=== PATIENT | male | born 1930 | race Caucasian/White ===

== ENCOUNTER 2017-10-30 13:32 | Inpatient (IN) | payer MEDICARE, OTHER ==
[2017-10-30 14:47] LABS: CKMB 1.9 ng/mL (0-6.6)
[2017-10-30 14:56] LABS: Troponin I 1.515 ng/mL (< 0.028)
[2017-10-30] MEDS ORDERED: Aspirin 325 MG TAB ONE (15:38)
[2017-10-30] MEDS ORDERED: Ondansetron ODT 4 MG TAB PO PRN (16:20)
[2017-10-30] MEDS ORDERED: HYDROcodone/Acetaminophen 5/325 mg Tablet PO PRN (16:20)
[2017-10-30] MEDS ORDERED: Acetaminophen 325 MG TAB PO PRN (16:20)
[2017-10-30 16:33] VITALS: BMI 28.3
[2017-10-30 18:48] LABS: Troponin I 1.614 ng/mL (< 0.028)
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
[2017-10-30 19:19] LABS: Hemoglobin 13.9 g/dL (14.0-18.0); Platelet Count 290 thou/uL (130-400)
[2017-10-30] MEDS: Famotidine 40 MG/4 ML VIAL SLOW IVP SCH (20:45)
[2017-10-30] MEDS: Dabigatran 150 mg Capsule PO SCH (20:46)
[2017-10-30] MEDS: Metoprolol Tartrate 50 MG TAB PO SCH (20:46)
[2017-10-30] MEDS: Lisinopril 20 MG TAB PO SCH (20:46)
[2017-10-30] MEDS ORDERED: Enoxaparin Sodium 80 MG/0.8 ML SYRINGE SC SCH (21:00)
[2017-10-30] MEDS ORDERED: Carvedilol 3.125 MG TAB PO SCH (21:00)
[2017-10-30] MEDS ORDERED: Famotidine/PF 20 mg/2ml Vial SLOW IVP SCH (21:00)
[2017-10-30] MEDS ORDERED: Enoxaparin Sodium 100 MG/ML SYRINGE SC SCH (21:00)
[2017-10-30] MEDS ORDERED: Metoprolol Tartrate 50 MG TAB PO SCH (21:00)
[2017-10-31 05:39] LABS: #Eosinphils 0.2 thou/uL (0.0-0.7); #Lymphocytes 0.5 thou/uL (1.20-3.40); #Monocytes 0.8 thou/uL (0.11-0.59); #Neutrophils 10.9 thou/uL (1.40-6.50); %Basophils 0.1 % (0.0-1.0); %Eosinophils 1.9 % (0.0-10.0); %Lymphocytes 4.2 % (21.0-51.0); %Monocytes 6.4 % (0.0-10.0); %Neutrophils 87.4 % (42.0-75.0); Hemoglobin 13.5 g/dL (14.0-18.0); Mean Corpuscular Hemoglobin 29.7 pg (27.0-31.0); Mean Corpuscular Volume 95.9 fl (80.0-94.0); Mean Platelet Volume 7.1 fL (7.4-10.4); Platelet Count 282 thou/uL (130-400); Red Blood Cell (RBC) Count 4.56 mill/uL (4.70-6.10); White Blood Cell (WBC) Count 12.5 thou/uL (4.8-10.8)
[2017-10-31 05:52] LABS: Anion Gap 15 mmol/L (10-20); BUN (Urea Nitrogen) 31 mg/dL (8.4-25.7); Calc. Creatinine Clearance 69 mL/min (70-130); Calcium 8.7 mg/dL (7.8-10.44); Carbon Dioxide 33 mmol/L (23-31); Cardiac Risk 5.5 (Less than 4.5); Chloride 96 mmol/L (98-107); Cholesterol 120 mg/dl (< 200 Desired); Estimated GFR-MDRD 77; Glucose 95 mg/dL (83-110); HDL Cholesterol 22 mg/dL (>60 Neg Risk); LDL Cholesterol, Calculated 74 mg/dL; Potassium 3.7 mmol/L (3.5-5.1); Sodium 140 mmol/L (136-145); Triglycerides 119 mg/dL (Less than 150)
[2017-10-31] MEDS ORDERED: Furosemide 20 MG/2 ML VIAL SLOW IVP SCH (06:00)
[2017-10-31] MEDS: Furosemide 20 MG/2 ML VIAL SLOW IVP SCH ×2 (06:52→14:43)
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
[2017-10-31] MEDS: Lisinopril 20 MG TAB PO SCH (08:19)
[2017-10-31] MEDS: Dabigatran 150 mg Capsule PO SCH ×2 (08:19→20:57)
[2017-10-31] MEDS: Spironolactone 25 MG TAB PO SCH (08:20)
[2017-10-31] MEDS: Potassium Chloride 10 MEQ TAB PO SCH (08:20)
[2017-10-31] MEDS: Metoprolol Tartrate 50 MG TAB PO SCH ×2 (08:28→21:08)
[2017-10-31] MEDS: Famotidine 40 MG/4 ML VIAL SLOW IVP SCH ×2 (08:44→20:56)
[2017-10-31] MEDS ORDERED: Non-Formulary Item 1 EACH (Sertraline Hcl [Zoloft] 50 MG) PO SCH (09:00)
[2017-10-31] MEDS ORDERED: Aspirin 325 MG TAB PO SCH (09:00)
[2017-10-31] MEDS ORDERED: cefTRIAXone\\ROCEPHIN 1 GM in Sodium Chloride 0.9% 100 ML IVPB SCH (09:00)
[2017-10-31] MEDS: Azithromycin 500 MG in Sodium Chloride 0.9% 250 ML 250 ML IVPB SCH (09:34)
[2017-10-31] MEDS ORDERED: cefTRIAXone\\ROCEPHIN 1 GM, Syringe 0.4 ML in Sterile Water 9.6 ML SLOW IVP SCH (10:00)
[2017-10-31] MEDS: cefTRIAXone\\ROCEPHIN 1 GM, Syringe 0.4 ML in Sterile Water 9.6 ML SLOW IVP SCH (11:44)
--- NOTE | 2017-10-31 14:54 | PDOC.CTH ---
Cardiology Progress Note - Subjective Discussed care with family. Questions answered. Patient responsive, but not oriented. They say he's had mild hallucinations. Not aggressive. - Objective Vital Signs Temp Pulse Pulse Pulse Resp BP BP 10/31/17 12:20 99.0 F 76 16 10/31/17 09:48 86 73 101/57 L 108/56 L 10/31/17 09:23 86 73 101/57 L 108/56 L 10/31/17 08:13 97.7 F 106 H 22 H BP Pulse Ox Pulse Ox Pulse Ox 10/31/17 12:20 107/52 L 95 10/31/17 09:48 95 96 10/31/17 09:23 96 10/31/17 08:13 132/76 95 Weight 186 lb 10/30/17 10/31/17 11/01/17 06:59 06:59 06:59 Intake Total 480 Balance 480 - Physical Examination General/Neuro: NAD, other: (Alert and awake) Neck: no JVD present Lungs: other: (decreased BS bilaterally at bases; no wheezing/rhonchi) Heart: other: (Irregular) Abdomen: NT/ND Extremities: other: (+1 edema to right. No edema to LLE) - Telemetry Telemetry Rhythm: AFib, rate 90s-100bpm - Labs Result Diagrams: 10/31/17 05:19 10/31/17 05:19 Troponin/CKMB CK-MB (CK-2) 1.9 ng/mL (0-6.6) 10/30/17 14:04 Troponin I 1.614 ng/mL (< 0.028) H* 10/30/17 17:46 - Assessment/Plan 1. NSTEMI - medical mgmt only 2. Acute CHF - ECHO pending to evaluate whether systolic or diastolic. 3. Hypotension - decrease lisinopril 4. AFib with RVR - improved rate-control on bblocker increased dosage. Pradaxa resumed. 5. Possible PNA - treated per primary team. 6. MS changes (per family) - monitor closely. VSS currently.
[2017-10-31] MEDS: Lisinopril 10 MG TAB PO SCH (20:58)
[2017-11-01 05:15] LABS: #Eosinphils 0.3 thou/uL (0.0-0.7); #Lymphocytes 0.6 thou/uL (1.20-3.40); #Monocytes 0.9 thou/uL (0.11-0.59); #Neutrophils 9.7 thou/uL (1.40-6.50); %Eosinophils 2.9 % (0.0-10.0); %Lymphocytes 5.4 % (21.0-51.0); %Monocytes 7.8 % (0.0-10.0); %Neutrophils 83.9 % (42.0-75.0); Hemoglobin 13.4 g/dL (14.0-18.0); Mean Corpuscular HGB CONC 31.2 g/dL (32.0-36.0); Mean Platelet Volume 6.9 fL (7.4-10.4); Platelet Count 261 thou/uL (130-400); RBC Distribution Width 12.9 % (11.5-14.5); Red Blood Cell (RBC) Count 4.46 mill/uL (4.70-6.10); White Blood Cell (WBC) Count 11.5 thou/uL (4.8-10.8)
[2017-11-01 05:24] LABS: Anion Gap 13 mmol/L (10-20); BUN (Urea Nitrogen) 30 mg/dL (8.4-25.7); Calc. Creatinine Clearance 66 mL/min (70-130); Calcium 8.4 mg/dL (7.8-10.44); Carbon Dioxide 36 mmol/L (23-31); Chloride 93 mmol/L (98-107); Estimated GFR-MDRD 77; Glucose 120 mg/dL (83-110); Potassium 3.4 mmol/L (3.5-5.1); Sodium 139 mmol/L (136-145)
[2017-11-01] MEDS: Furosemide 20 MG/2 ML VIAL SLOW IVP SCH ×2 (06:22→14:49)
--- NOTE | 2017-11-01 08:06 | RAD ---
PORTABLE CHEST 1 VIEW: Date: 11/01/17 Time: 0547 hours HISTORY: Shortness of breath and cough. FINDINGS/IMPRESSION: Comparison made with exam of 10/30/17. There is a new density in the right mid lung which may either represent an infiltrate/pneumonia or a plate of atelectatic change. Chronic changes are again noted. The heart size is stable. No pneumothor aces or pleural effusions are seen. POS: JOSÉ MIGUEL
[2017-11-01] MEDS: Potassium Chloride 10 MEQ TAB PO SCH (08:50)
[2017-11-01] MEDS: Lisinopril 10 MG TAB PO SCH ×2 (08:51→21:31)
[2017-11-01] MEDS: Metoprolol Tartrate 50 MG TAB PO SCH ×2 (08:51→21:31)
[2017-11-01] MEDS: Spironolactone 25 MG TAB PO SCH (08:51)
[2017-11-01] MEDS: Famotidine 40 MG/4 ML VIAL SLOW IVP SCH ×2 (08:56→21:40)
[2017-11-01] MEDS: Azithromycin 500 MG in Sodium Chloride 0.9% 250 ML 250 ML IVPB SCH (09:04)
[2017-11-01] MEDS: Dabigatran 150 mg Capsule PO SCH ×2 (09:04→21:31)
--- NOTE | 2017-11-01 10:12 | PDOC.PN ---
- Subjective Encounter Start Date: 10/31/17 Encounter Start Time: 11:00 Patient is seen today, alert and oriented. No other concerns noted. Discussed with pts daugther. pt is Admitted with CHF exacerbation and Atrial Fibrillation with Pneumonia - Objective Resuscitation Status: Resuscitation Status FULL:Full Resuscitation MAR Reviewed: Yes Vital Signs & Weight: Vital Signs (12 hours) Temp Pulse Resp BP BP Pulse Ox 11/01/17 08:51 110/56 L 11/01/17 04:32 98.7 F 76 15 126/67 92 L 11/01/17 00:55 98.5 F 81 14 117/62 92 L Weight Weight 195 lb 3.2 oz I&O: 10/31/17 11/01/17 11/02/17 06:59 06:59 06:59 Intake Total 480 720 Balance 480 720 Result Diagrams: 11/01/17 04:58 11/01/17 04:58 Radiology Reviewed by me: Yes Phys Exam - Physical Examination HEENT: PERRLA, moist MMs Neck: no nodes, no JVD Respiratory: no wheezing, no rales Cardiovascular: RRR, no significant murmur Gastrointestinal: soft, non-tender Musculoskeletal: no edema, pulses present Neurological: non-focal, normal sensation Psychiatric: normal affect, A&O x 3 Dx/Plan (1) Acute CHF Code(s): I50.9 - HEART FAILURE, UNSPECIFIED Status: Acute Comment: Will continue on IV lasix, good diuresis, Cardiology on board, Echo pending. Will continue with ACEI and BB. (2) Atrial fibrillation Code(s): I48.91 - UNSPECIFIED ATRIAL FIBRILLATION Status: Acute Comment: Pt will be continued on pradaxa and Rate controlled BB. (3) NSTEMI (non-ST elevated myocardial infarction) Code(s): I21.4 - NON-ST ELEVATION (NSTEMI) MYOCARDIAL INFARCTION Status: Acute Comment: No intervention per cardiology, Will continue with Aspirin/ pradaxa, and BB., (4) Pneumonia, community acquired Code(s): J18.9 - PNEUMONIA, UNSPECIFIED ORGANISM Status: Acute Comment: Will continue with IV rocephin and Azithromycin, will do repeat chest xray in Am. (5) HTN (hypertension) Code(s): I10 - ESSENTIAL (PRIMARY) HYPERTENSION Status: Acute Comment: continue home meds. - Plan cont current plan of care, plan discussed w/ family, continue antibiotics, PT/OT , social work therapist, respiratory therapy, incentive spirometry, DVT proph w/SCDs * . - Discharge Day Encounter end time: 11:35 Review of Systems - Review of Systems Constitutional: weakness, malaise Eyes: negative: Pain, Vision Change, Conjunctivae Inflammation, Eyelid Inflammation, Redness, Other ENT: negative: Ear Pain, Ear Discharge, Nose Pain, Nose Discharge, Nose Congestion, Mouth Pain, Mouth Swelling, Throat Pain, Throat Swelling, Other Respiratory: negative: Cough, Dry, Shortness of Breath, Hemoptysis, SOB with Excertion, Pleuritic Pain, Sputum, Wheezing Gastrointestinal: negative: Nausea, Vomiting, Abdominal Pain, Diarrhea, Constipation, Melena, Hematochezia, Other Genitourinary: negative: Dysuria, Frequency, Incontinence, Hematuria, Retention , Other Musculoskeletal: negative: Neck Pain, Shoulder Pain, Arm Pain, Back Pain, Hand Pain, Leg Pain, Foot Pain, Other - Medications/Allergies Allergies/Adverse Reactions: Allergies Allergy/AdvReac Type Severity Reaction Status Date / Time morphine Allergy Verified 10/30/17 16:31 Medications: Current Medications Acetaminophen (Tylenol) 650 mg PO Q4H PRN PRN Reason: Headache/Fever or Pain Hydrocodone Bitart/Acetaminophen ([place] 5/325) 1 tab PO Q4H PRN PRN Reason: Moderate Pain (4-6) Aspirin (Aspirin Chewable) 81 mg PO DAILY [facility] Last Admin: 11/01/17 08:54 Dose: 81 mg Dabigatran (Pradaxa) 150 mg PO BID [facility] Last Admin: 11/01/17 09:04 Dose: 150 mg Famotidine (Pepcid) 20 mg SLOW IVP BID [facility] Last Admin: 11/01/17 08:56 Dose: 2 ml Furosemide (Lasix) 40 mg SLOW IVP 0600,1400 [facility] Last Admin: 11/01/17 06:22 Dose: 40 mg Azithromycin 500 mg/ Sodium (Chloride) 250 mls @ 250 mls/hr IVPB Q24HR [facility] Last Admin: 11/01/17 09:04 Dose: 250 mls Ceftriaxone Sodium 1 gm/ (Syringe 0.4 ml/ Sterile Water) 10 mls @ 120 mls/hr SLOW IVP 1200 [facility] Last Admin: 10/31/17 11:44 Dose: 10 mls Lisinopril (Zestril) 10 mg PO BID [facility] Last Admin: 11/01/17 08:51 Dose: 10 mg Metoprolol Tartrate (Lopressor) 75 mg PO BID [facility] Last Admin: 11/01/17 08:51 Dose: 75 mg Ondansetron HCl (Zofran Odt) 4 mg PO Q6H PRN PRN Reason: Nausea/Vomiting Potassium Chloride (Klor-Con 10) 10 meq PO DAILY [facility] Last Admin: 11/01/17 08:50 Dose: 10 meq Sertraline HCl (Zoloft) 50 mg PO DAILY [facility] Last Admin: 11/01/17 08:50 Dose: 50 mg Sodium Chloride (Flush - Normal Saline) 10 ml IVF Q12HR [facility] Last Admin: 11/01/17 08:55 Dose: 10 ml Sodium Chloride (Flush - Normal Saline) 10 ml IVF PRN PRN PRN Reason: Saline Flush Last Admin: 10/31/17 08:45 Dose: 10 ml Spironolactone (Aldactone) 12.5 mg PO DAILY [facility] Last Admin: 11/01/17 08:51 Dose: 12.5 mg
[2017-11-01] MEDS: cefTRIAXone\\ROCEPHIN 1 GM, Syringe 0.4 ML in Sterile Water 9.6 ML SLOW IVP SCH (12:47)
--- NOTE | 2017-11-01 14:55 | PDOC.PN ---
- Subjective Encounter Start Date: 11/01/17 Encounter Start Time: 12:15 Patient is seen today, alert and oriented. No other concenrs noted. Discussed with Family, they want to go home with home health. - Objective Resuscitation Status: Resuscitation Status FULL:Full Resuscitation MAR Reviewed: Yes Vital Signs & Weight: Vital Signs (12 hours) Temp Pulse Resp BP BP Pulse Ox 11/01/17 12:00 98.2 F 75 18 111/55 L 95 11/01/17 08:51 110/56 L 11/01/17 08:00 98.2 F 75 18 110/56 L 93 L 11/01/17 04:32 98.7 F 76 15 126/67 92 L Weight Weight 195 lb 3.2 oz I&O: 10/31/17 11/01/17 11/02/17 06:59 06:59 06:59 Intake Total 480 720 300 Balance 480 720 300 Result Diagrams: 11/01/17 04:58 11/01/17 04:58 Additional Labs: Accuchecks 11/01/17 11:37 POC Glucose 205 H Radiology Reviewed by me: Yes Phys Exam - Physical Examination HEENT: PERRLA, moist MMs Neck: no nodes, no JVD Respiratory: no wheezing, no rales Cardiovascular: RRR, no significant murmur Gastrointestinal: soft, non-tender Musculoskeletal: no edema, pulses present Neurological: non-focal, normal sensation Lymphatic: no nodes Psychiatric: normal affect, A&O x 3 Dx/Plan (1) Acute CHF Code(s): I50.9 - HEART FAILURE, UNSPECIFIED Status: Acute Comment: Will continue on IV lasix, good renal fucntions, good diuresis, Cardiology on board, Echo 50%. Will continue with ACEI and BB. (2) Atrial fibrillation Code(s): I48.91 - UNSPECIFIED ATRIAL FIBRILLATION Status: Acute Comment: Pt will be continued on pradaxa and Rate controlled BB. (3) NSTEMI (non-ST elevated myocardial infarction) Code(s): I21.4 - NON-ST ELEVATION (NSTEMI) MYOCARDIAL INFARCTION Status: Acute Comment: No intervention per cardiology, Will continue with Aspirin/ pradaxa, and BB., (4) Pneumonia, community acquired Code(s): J18.9 - PNEUMONIA, UNSPECIFIED ORGANISM Status: Acute Comment: Will continue with IV rocephin and Azithromycin, will do repeat chest xray in Am. (5) HTN (hypertension) Code(s): I10 - ESSENTIAL (PRIMARY) HYPERTENSION Status: Acute Comment: continue home meds. (6) Acute respiratory failure with hypoxia Code(s): J96.01 - ACUTE RESPIRATORY FAILURE WITH HYPOXIA Status: Acute Comment: Likely from CHF and Pneumonia, will do home oxygen evalution if unable to get off of oxygen by tomorrow. - Plan cont current plan of care, plan discussed w/ family, PT/OT, social media senior associate, respiratory therapy, incentive spirometry, out of bed/ambulate, DVT proph w/ lovenox * . - Discharge Day Encounter end time: 12:45 Review of Systems - Review of Systems Eyes: negative: Pain, Vision Change, Conjunctivae Inflammation, Eyelid Inflammation, Redness, Other ENT: negative: Ear Pain, Ear Discharge, Nose Pain, Nose Discharge, Nose Congestion, Mouth Pain, Mouth Swelling, Throat Pain, Throat Swelling, Other Respiratory: negative: Cough, Dry, Shortness of Breath, Hemoptysis, SOB with Excertion, Pleuritic Pain, Sputum, Wheezing Cardiovascular: negative: chest pain, palpitations, orthopnea, paroxysmal nocturnal dyspnea, edema, light headedness, other Gastrointestinal: negative: Nausea, Vomiting, Abdominal Pain, Diarrhea, Constipation, Melena, Hematochezia, Other Musculoskeletal: negative: Neck Pain, Shoulder Pain, Arm Pain, Back Pain, Hand Pain, Leg Pain, Foot Pain, Other - Medications/Allergies Allergies/Adverse Reactions: Allergies Allergy/AdvReac Type Severity Reaction Status Date / Time morphine Allergy Verified 10/30/17 16:31 Medications: Current Medications Acetaminophen (Tylenol) 650 mg PO Q4H PRN PRN Reason: Headache/Fever or Pain Hydrocodone Bitart/Acetaminophen ([place] 5/325) 1 tab PO Q4H PRN PRN Reason: Moderate Pain (4-6) Aspirin (Aspirin Chewable) 81 mg PO DAILY [facility] Last Admin: 11/01/17 08:54 Dose: 81 mg Atorvastatin Calcium (Lipitor) 20 mg PO HS [facility] Dabigatran (Pradaxa) 150 mg PO BID [facility] Last Admin: 11/01/17 09:04 Dose: 150 mg Famotidine (Pepcid) 20 mg SLOW IVP BID [facility] Last Admin: 11/01/17 08:56 Dose: 2 ml Furosemide (Lasix) 40 mg SLOW IVP 0600,1400 [facility] Last Admin: 11/01/17 14:49 Dose: 40 mg Azithromycin 500 mg/ Sodium (Chloride) 250 mls @ 250 mls/hr IVPB Q24HR [facility] Last Admin: 11/01/17 09:04 Dose: 250 mls Ceftriaxone Sodium 1 gm/ (Syringe 0.4 ml/ Sterile Water) 10 mls @ 120 mls/hr SLOW IVP 1200 [facility] Last Admin: 11/01/17 12:47 Dose: 10 mls Lisinopril (Zestril) 10 mg PO BID [facility] Last Admin: 11/01/17 08:51 Dose: 10 mg Metoprolol Tartrate (Lopressor) 75 mg PO BID [facility] Last Admin: 11/01/17 08:51 Dose: 75 mg Ondansetron HCl (Zofran Odt) 4 mg PO Q6H PRN PRN Reason: Nausea/Vomiting Potassium Chloride (Klor-Con 10) 10 meq PO DAILY [facility] Last Admin: 11/01/17 08:50 Dose: 10 meq Sertraline HCl (Zoloft) 50 mg PO DAILY [facility] Last Admin: 11/01/17 08:50 Dose: 50 mg Sodium Chloride (Flush - Normal Saline) 10 ml IVF Q12HR [facility] Last Admin: 11/01/17 08:55 Dose: 10 ml Sodium Chloride (Flush - Normal Saline) 10 ml IVF PRN PRN PRN Reason: Saline Flush Last Admin: 10/31/17 08:45 Dose: 10 ml Spironolactone (Aldactone) 12.5 mg PO DAILY [facility] Last Admin: 11/01/17 08:51 Dose: 12.5 mg
--- NOTE | 2017-11-01 15:33 | PRG ---
DATE OF SERVICE: 11/01/2017 SUBJECTIVE: Mr. Brady appear to be more alert today, but confused. His daughter states he has turner d significant confusion overnight. He has had little sleep. There has been much interruption in his sleep overnight. No current specific complaints noted. PHYSICAL EXAMINATION: VITAL SIGNS: Blood pressure 111/55, pulse 75, temperature 98.2. LUNGS: Rhonchi, rales bilaterally. HEART: Irregularly irregular. ABDOMEN: Soft, nontender, and nondistended. EXTREMITIES: 1+ pitting edema. PERTINENT LABORATORY DATA: Hemoglobin 13.4, white blood cell count 11.5, platelet count of 261. IMPRESSION: 1. Atrial fibrillation. 2. Elevated troponin. 3. Pneumonia. RECOMMENDATIONS: Elevated troponin secondary to community-acquired pneumonia. At this point, we marlen l continue to treat medically. Family has opted for conservative therapy in an aggressive approach, I certainly agree. At this point, continue aspirin in addition to Pradaxa, metoprolol and lisinopril . Would recommend adding low dose statin therapy. Otherwise, I have no recommendations. His LVEF o n recent echo estimated at 45%-50%. Dr. Sargent is on-call this weekend. Please reconsult if needed.
[2017-11-01 19:14] LABS: Hemoglobin 14.4 g/dL (14.0-18.0); Platelet Count 269 thou/uL (130-400)
[2017-11-01] MEDS ORDERED: Atorvastatin Calcium 20 MG TAB PO SCH (21:00)
[2017-11-02 06:00] LABS: BUN (Urea Nitrogen) 31 mg/dL (8.4-25.7); Calc. Creatinine Clearance 65 mL/min (70-130); Calcium 8.3 mg/dL (7.8-10.44); Estimated GFR-MDRD 69; Glucose 120 mg/dL (83-110)
[2017-11-02 06:09] LABS: Anion Gap 16 mmol/L (10-20); Carbon Dioxide 38 mmol/L (23-31); Chloride 90 mmol/L (98-107); Potassium 3.6 mmol/L (3.5-5.1); Sodium 140 mmol/L (136-145)
[2017-11-02] MEDS: Furosemide 20 MG/2 ML VIAL SLOW IVP SCH (06:21)
[2017-11-02 06:25] LABS: Band 5 % (5-11); Hemoglobin 13.4 g/dL (14.0-18.0); Lymphocytes 6 % (21-51); MDiff Complete? YES; Mean Corpuscular HGB CONC 31.2 g/dL (32.0-36.0); Mean Platelet Volume 6.8 fL (7.4-10.4); Monocytes 4 % (0-10); Neutrophil 84 % (42-75); PLT Morphology Comment Appears Adequate; Platelet Count 273 thou/uL (130-400); RBC Distribution Width 12.7 % (11.5-14.5); Reactive Lymphocytes 1 % (0-10); Red Blood Cell (RBC) Count 4.47 mill/uL (4.70-6.10); White Blood Cell (WBC) Count 13.8 thou/uL (4.8-10.8)
[2017-11-02] MEDS: Lisinopril 10 MG TAB PO SCH (08:59)
[2017-11-02] MEDS: Azithromycin 500 MG in Sodium Chloride 0.9% 250 ML 250 ML IVPB SCH (08:59)
[2017-11-02] MEDS: Potassium Chloride 10 MEQ TAB PO SCH (09:00)
[2017-11-02] MEDS: Spironolactone 25 MG TAB PO SCH (09:00)
[2017-11-02] MEDS: Famotidine 40 MG/4 ML VIAL SLOW IVP SCH (09:01)
[2017-11-02] MEDS: Metoprolol Tartrate 50 MG TAB PO SCH (09:09)
[2017-11-02] MEDS: Dabigatran 150 mg Capsule PO SCH (09:10)
[2017-11-02 12:50] VITALS: BP 119/57; TEMP 97.9
[2017-11-02] MEDS: cefTRIAXone\\ROCEPHIN 1 GM, Syringe 0.4 ML in Sterile Water 9.6 ML SLOW IVP SCH (12:56)
--- NOTE | 2017-11-02 15:54 | DIS ---
DATE OF ADMISSION: 10/30/2017 DATE OF DISCHARGE: 11/02/2017 ADMITTING DIAGNOSIS: Acute right lung pneumonia, community acquired. DISCHARGE DIAGNOSIS: Acute right lung pneumonia, community acquired. SECONDARY DIAGNOSES: 1. Non-ST elevation myocardial infarction. 2. Acute congestive heart failure, diastolic dysfunction. 3. Uncontrolled hypertension. 4. Dyslipidemia. CONSULTANTS INVOLVED IN THE CARE: Dr. Delta Vila. BRIEF HOSPITAL COURSE: Patient is an 87-year-old white male who is admitted with congestive heart fa ilure with shortness of breath and cough for the past 1 week and failed outpatient oral antibiotics f or upper respiratory infection, had elevated white count in the ER and initially was diagnosed with p neumonia and was started on IV antibiotics. Because of the elevation of the troponins, Cardiology wa s consulted and did discuss with the family about no intervention with aggressive medical management at this time. Patient was monitored and he showed significant improvement with IV Lasix which the adrian lozoya was getting. Patient showed good improvement and he continued to improve and Lasix was held be cause of the patient getting more and more dry and the white count was growing up, most likely from t he dehydration and patient was back to his baseline and he wanted to go home. PT and OT was ordered and home health was arranged for the patient to go home. Patient was discharged home in stable condi tion. PHYSICAL EXAMINATION: On date of discharge: VITAL SIGNS: Blood pressures are 119/57, heart rate 75, respiratory rate 20, saturation 95% on room air. GENERAL: The patient is moderately built and moderately nourished, does not appear to be in acute di stress. CARDIOVASCULAR: S1, S2 normal. No murmurs, rubs or gallops. LUNGS: Bilateral air entry was equal. No wheezing, no crackles. ABDOMEN: Soft, nontender. No guarding. No rebound tenderness. Bowel sounds normal. MUSCULOSKELETAL: No calf tenderness. No pedal edema, no joint tenderness, no joint swelling. SKIN: No cyanosis, no erythema, no rash, no pallor. DISCHARGE MEDICATIONS: NEW MEDICATIONS: 1. Azithromycin 500 mg p.o. daily for 3 more days. 2. Omnicef 300 mg p.o. b.i.d. for 3 more days. 3. Aspirin 81 mg p.o. daily. 4. Atorvastatin 40 mg p.o. daily. OTHER HOME MEDICATIONS: Clonazepam 0.25 mg p.o. b.i.d., dabigatran 150 mg p.o. b.i.d., hydrochloroth iazide 25 mg p.o. daily, lisinopril 20 mg p.o. b.i.d., metoprolol 50 mg p.o. b.i.d., potassium 10 mEq p.o. daily, sertraline 50 mg p.o. daily, spironolactone 12.5 mg p.o. daily. DISCHARGE INSTRUCTIONS: Continue activity as tolerated. Advised to follow up with primary care phys ician in 1-2 weeks. Advised to follow up with Cardiology in 1-2 weeks. Advised to return back to [facility] if the patient develops any persistent chest pains or any worsening shortness of breath. Advise d to avoid salt in the diet. Continue with physical therapy. I spent 35 minutes with this patient on the day of discharge.
--- NOTE | 2017-11-04 20:44 | PQF ---
ARI JARAMILLO ROOSEVELT ARNDT [id number] CLINICAL DOCUMENTATION CLARIFICATION FORM: POST DISCHARGE Addendum to original discharge summary date: ____ Late entry note date: __ DATE: 11/14/17 ATTN: Please exercise your independent, professional judgment in responding to the clarification form. Clinical indicators are provided on the bottom of this form for your review Please check appropriate box(s): [ x ] NSTEMI [ ] Demand Ischemia [ ] Other diagnosis [ ] Unable to determine In addition, please specify: Present on Admission (POA): [ x ] Yes [ ] No [ ] Unable to determine For continuity of documentation, please document condition throughout progress notes and discharge summary. Thank You. CLINICAL INDICATORS - SIGNS / SYMPTOMS / LABS Elevated troponin (NSTEMI vs demand vs pneumonia) RISK FACTORS CHF, Pneumonia TREATMENTS: Echo (This form is maintained as a part of the permanent medical record) 2015 [employer]. All Rights Reserved [email or web address] [phone] [email or web address]
== END 2017-11-02 16:35 | disposition home or self-care (01) | DRG 280 ==
LOC: ERS 13:32 → 2NO 16:01
PROVIDERS: ADMIT Family Medicine; ATTEND Family Medicine
DX: I21.4 Non-ST elevation (NSTEMI) myocardial infarction (principal); I50.23 Acute on chronic systolic (congestive) heart failure; J18.9 Pneumonia, unspecified organism; I48.91 Unspecified atrial fibrillation; Z79.899 Other long term (current) drug therapy; I11.0 Hypertensive heart disease with heart failure
CPT/HCPCS: 36415; 36416; 71045; 80048; 80061; 85025; 93005; 93306; 93798; A4216; G8978-GP-CM; G8979-GP-CK; G8987-GO-CM; G8988-GO-CK; J0456; J0696; J1940; J7050